=== PATIENT | female | born 1975 | race Caucasian/White ===

== ENCOUNTER 2016-12-22 15:48 | Emergency (ER) | payer BC, OTHER ==
[~2016-12-22] VITALS: Ht 160 cm; Wt 95.3 kg
[~2016-12-22 15:48] MED LIST: ADVAIR 250-501 EACH IH; ADVAIR 250-501 EACH INH; ALBUTEROL2.5 MG/0.5 INH; BENTYL 20 MG TA20 M1 PO; CILOXAN5 ML OP; CLARITIN10 MG PO; FLEXERIL PO; FLONASE 0.05%50 MCG NASAL; HYCET 7.5 MG-3473 ML PO; IBUPROFEN 600600 M1 PO; MEDROL DOSPAK21 TA1 PO; MEDROLDOSEPACK PO; NORCO 5-325 TA1 EACH PO; ONDANSETRON HCL4 M2 PO; PREDNISONE 20 M20 MG PO; PREDNISONE50 MG PO; PROVENTIL HFA6.7 G1 INH; SILVADENE20 GM TP; SINGULAIR 10 MG10 M1 PO; ULTRAM 50MG TAB50 MG PO; VENTOLIN HFA 1818 GM INH; VENTOLIN17 GM INH; ZPAK PO
[2016-12-22] MEDS ORDERED: NAPROSYN500 MG PO (16:25)
[2016-12-22] MEDS ORDERED: NORFLEX100 MG PO (16:25)
[2016-12-22 16:52] VITALS: BP 190/85
== END 2016-12-22 16:53 | disposition home or self-care (01) ==
LOC: ER 15:48
DX: S39.012A Strain of muscle, fascia and tendon of lower back, initial encounter (principal); F10.99 Alcohol use, unspecified with unspecified alcohol-induced disorder; J45.909 Unspecified asthma, uncomplicated; Z91.010 Allergy to peanuts; Z91.018 Allergy to other foods; X58.XXXA Exposure to other specified factors, initial encounter; Y93.89 Activity, other specified; Y92.89 Other specified places as the place of occurrence of the external cause; Y99.8 Other external cause status

== ENCOUNTER 2017-09-02 16:47 | Inpatient (IN) | payer BC, OTHER ==
[~2017-09-02] VITALS: Ht 160 cm; Wt 108.0 kg
--- NOTE | ~2017-09-02 | EKG ---
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
[~2017-09-02 16:47] MED LIST changes: +NAPROSYN500 MG PO; +NORFLEX100 MG PO
[2017-09-02 17:35] LABS: BASOPHILS 0.8 % (0.0-2.0); EOSINOPHILS 2.5 % (0.0-3.0); HEMATOCRIT 38.3 % (37.0-47.0); HEMOGLOBIN 12.8 gm/dL (12.0-15.0); LYMPHOCYTES 33.7 % (24.0-44.0); MCH 29.6 pg (26.0-34.0); MCHC 33.5 g/dL (28.0-37.0); MCV 88.4 fL (80.0-100.0); MONOCYTES 6.6 % (1.0-8.0); PLATELET COUNT 206 thou/uL (150-400); POLYS 56.4 % (36.0-66.0); RBC 4.34 mil/uL (4.20-5.00); RDW 15.4 % (10.5-14.5); WBC 5.3 thou/uL (4.0-11.0)
[2017-09-02 17:47] LABS: ANION GAP 7 mmol/L (7-16); BUN 11 mg/dL (7-18); CALCIUM 9.1 mg/dL (8.5-10.1); CHLORIDE 110 mmol/L (98-107); CO2 27 mmol/L (21-32); CREATININE 0.7 mg/dL (0.6-1.0); GLUCOSE 121 mg/dL (74-106); POTASSIUM 3.8 mmol/L (3.5-5.1); SODIUM 144 mmol/L (136-145)
[2017-09-02 17:56] LABS: ALBUMIN 3.7 g/dL (3.4-5.0); SGOT 26 U/L (15-37); SGPT 37 U/L (30-65); TOTAL BILIRUBIN 0.1 mg/dL (<0.1-1.0); TOTAL PROTEIN 7.1 g/dL (6.4-8.2); TROPONIN-I < 0.04 ng/mL (<0.06)
[2017-09-02 17:58] LABS: URINE BILIRUBIN NEGATIVE (Negative); URINE BLOOD NEGATIVE (Negative); URINE CLARITY CLEAR; URINE COLOR YELLOW; URINE GLUCOSE-RANDOM* NEGATIVE (Negative); URINE KETONES TRACE (Negative); URINE LEUKOCYTES NEGATIVE (Negative); URINE NITRITE NEGATIVE (Negative); URINE PROTEIN (DIPSTICK) NEGATIVE (Negative); URINE UROBILINOGEN 0.2 E.U./dl (0.2-1.0)
[2017-09-02 21:43] VITALS: BP 132/78
[2017-09-02 22:00] VITALS: BP 135/82
[2017-09-03 04:05] VITALS: BP 123/60
[2017-09-03 04:08] VITALS: BP 115/77
[2017-09-03 04:14] VITALS: BP 133/93
[2017-09-03 05:50] LABS: CALCIUM 9.3 mg/dL (8.5-10.1); CREATININE 0.6 mg/dL (0.6-1.0); POTASSIUM 4.1 mmol/L (3.5-5.1)
[2017-09-03 08:00] VITALS: BP 126/69
[2017-09-03 15:51] VITALS: BP 144/79
[2017-09-03 19:20] VITALS: BP 129/81
[2017-09-04 04:25] VITALS: BP 113/62
[2017-09-04 08:00] VITALS: BP 154/86
[2017-09-04] MEDS ORDERED: ANTIVERT25 MG PO (10:16)
[2017-09-04] MEDS ORDERED: PREDNISONE 20 M20 MG PO (10:16)
[2017-09-04 10:43] VITALS: BP 154/86
[2018-01-01] MEDS ORDERED: MOBIC15 MG PO (18:11)
== END 2017-09-04 12:06 | disposition home or self-care (01) | DRG 74 ==
LOC: ER 16:47 → 4S 20:52 → EROBS 20:52 → 4S 21:44 → ENTRNSPT 09-04 11:41 → EDTRNSPTSTS 09-04 11:44 → 4S 09-04 12:06
PROVIDERS: Nurse Practitioner Family; Physician Assistant
DX: M79.2 Neuralgia and neuritis, unspecified (principal); H83.09 Labyrinthitis, unspecified ear; J45.909 Unspecified asthma, uncomplicated; M19.90 Unspecified osteoarthritis, unspecified site; G89.29 Other chronic pain; M54.9 Dorsalgia, unspecified; Z88.8 Allergy status to other drugs, medicaments and biological substances; Z87.891 Personal history of nicotine dependence; Z91.010 Allergy to peanuts
CPT/HCPCS: 10195

== ENCOUNTER 2018-01-10 00:51 | Emergency (ER) | payer BC, OTHER ==
[~2018-01-10] VITALS: Ht 157.5 cm; Wt 97.5 kg
[~2018-01-10 00:51] MED LIST changes: +ANTIVERT25 MG PO; +MOBIC15 MG PO
[2018-01-10] MEDS ORDERED: PREDNISONE 20 M20 MG PO (02:12)
[2018-01-10] MEDS ORDERED: AMOXICILLIN 50500 M1 PO (02:12)
== END 2018-01-10 02:46 | disposition home or self-care (01) ==
LOC: ER 00:51
DX: R50.9 Fever, unspecified (principal); J45.901 Unspecified asthma with (acute) exacerbation; J02.9 Acute pharyngitis, unspecified; J06.9 Acute upper respiratory infection, unspecified; Z91.010 Allergy to peanuts